=== PATIENT | female | born 1995 | race African-American/Black ===

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

== ENCOUNTER 2017-02-12 20:21 | Emergency (ER) | payer OTHER ==
[~2017-02-12] VITALS: Ht 137.2 cm; Wt 61.2 kg
== END 2017-02-12 21:01 | disposition home or self-care (01) ==
LOC: ED 20:21
DX: J02.9 Acute pharyngitis, unspecified (principal)
CPT/HCPCS: 99282